=== PATIENT | female | born 1960 | race Caucasian/White ===

== ENCOUNTER 2018-03-26 16:19 | Emergency (ER) | payer OTHER ==
[2018-03-26 16:29] VITALS: BP 147/77
--- NOTE | 2018-03-26 17:06 | ER Document Report ---
ED Medical Screen (RME) - General Chief Complaint: Leg Pain Stated Complaint: RIGHT LEG PAIN, SWELLING Time Seen by Provider: 03/26/18 17:01 Notes: Patient is a 57-year-old female who presents with a few days of worsening right calf pain and swelling. Had a right knee injury 2 years ago, but no recent trauma or surgeries. No history of blood clots. PE: Swelling of right calf. Strong DP and PT pulses. I have greeted and performed a rapid initial assessment of this patient. A comprehensive ED assessment and evaluation of the patient, analysis of test results and completion of the medical decision making process will be conducted by additional ED providers. TRAVEL OUTSIDE OF THE [place] IN LAST 30 DAYS: No - Related Data Allergies/Adverse Reactions: No Known Allergies Allergy (Verified 03/26/18 16:56) Home Medications: gabapentin Past Medical History - Social History Chew tobacco use (# tins/day): No Frequency of alcohol use: Rare Drug Abuse: None Renal/ Medical History: Denies: Hx Peritoneal Dialysis Physical Exam - Vital signs Vitals: Temp Pulse Resp BP Pulse Ox 98.1 F 82 16 147/77 H 95 03/26/18 16:27 03/26/18 16:27 03/26/18 16:27 03/26/18 16:27 03/26/18 16:27 Course - Vital Signs Vital signs: Temp Pulse Resp BP Pulse Ox 98.1 F 82 16 147/77 H 95 03/26/18 16:27 03/26/18 16:27 03/26/18 16:27 03/26/18 16:27 03/26/18 16:27
[2018-03-26 17:41] LABS: ABSOLUTE EOSINOPHILS # (AUTO) 0.4 10^3/uL (0.0-0.6); ABSOLUTE MONOCYTES (AUTO) 0.8 10^3/uL (0.1-1.4); ABSOLUTE NEUT (AUTO) 5.7 10^3/uL (1.7-8.2); BASOPHILS % (AUTO) 0.4 % (0-2); EOSINOPHILS % (AUTO) 3.9 % (0-6); HEMATOCRIT 41.8 % (36.0-47.0); HEMOGLOBIN 14.1 g/dL (12.0-15.5); LYMPHOCYTES % (AUTO) 36.3 % (13-45); MEAN CORPUSCULAR HGB CONC 33.7 g/dL (32.0-36.0); MEAN CORPUSCULAR VOLUME 89 fl (80-97); MONOCYTES % (AUTO) 7.5 % (3-13); PLATELET COUNT 283 10^3/uL (150-450); RED CELL DISTRIBUTION WIDTH 14.7 % (11.5-14.0); SEGMENTED NEUTROPHILS % (AUTO) 51.9 % (42-78); TOTAL CELLS COUNTED % (AUTO) 100 %; WHITE BLOOD COUNT 10.9 10^3/uL (4.0-10.5)
[2018-03-26 18:08] LABS: ALANINE AMINOTRANSFERASE 37 U/L (9-52); ALBUMIN 4.3 g/dL (3.5-5.0); ALKALINE PHOSPHATASE 60 U/L (38-126); ANION GAP 17 (5-19); ASPARTATE AMINO TRANSFERASE 26 U/L (14-36); BILIRUBIN,DIRECT 0.3 mg/dL (0.0-0.4); BILIRUBIN,TOTAL 0.3 mg/dL (0.2-1.3); BLOOD UREA NITROGEN 17 mg/dL (7-20); CALCIUM 9.8 mg/dL (8.4-10.2); CARBON DIOXIDE 24 mmol/L (22-30); CHLORIDE 104 mmol/L (98-107); CREATINE KINASE 37 U/L (30-135); GLUCOSE 139 mg/dL (75-110); POTASSIUM 4.1 mmol/L (3.6-5.0); SODIUM 144.8 mmol/L (137-145); TOTAL PROTEIN 7.8 g/dL (6.3-8.2)
--- NOTE | 2018-03-26 19:17 | RADIOLOGY REPORT (SQ) ---
EXAM DESCRIPTION: TIBIA FIBULA RIGHT COMPLETED DATE/TIME: 03/26/2018 7:09 pm REASON FOR STUDY: pain COMPARISON: None. NUMBER OF VIEWS: Two views. TECHNIQUE: Two radiographic images acquired of the right tibia and fibula to include the knee and an kle in at least one projection. LIMITATIONS: None. FINDINGS: MINERALIZATION: Normal. BONES: No acute fracture or dislocation. No worrisome bone lesions. SOFT TISSUES: No obvious swelling or foreign body. OTHER: No other significant finding. IMPRESSION: NEGATIVE STUDY OF THE RIGHT TIBIA AND FIBULA. NO RADIOGRAPHIC EVIDENCE OF ACUTE INJURY. TECHNICAL DOCUMENTATION: JOB ID: [id number] [employer]- All Rights Reserved Reading location - IP/workstation name: [email or web address]
--- NOTE | 2018-03-26 20:09 | ER Document Report ---
ED General - General Chief Complaint: Leg Pain Stated Complaint: RIGHT LEG PAIN, SWELLING Time Seen by Provider: 03/26/18 17:01 TRAVEL OUTSIDE OF THE [place] IN LAST 30 DAYS: No - HPI Patient complains to provider of: Right leg pain Notes: Patient coming in for right leg pain. Patient states pain behind the calf. Patient does have multiple bruises to the right leg. Patient states she does have a large Labrador retriever has been stepping on her legs and jumping on her. Patient states pain has been sharp and shooting going down the back of her leg patient does have some mild swelling concerning for possible DVT. Patient otherwise denies any recent history of travel denies any trauma denies any history of PE DVT in the past. - Related Data Allergies/Adverse Reactions: No Known Allergies Allergy (Verified 03/26/18 16:56) Home Medications: gabapentin Past Medical History - Social History Smoking Status: Former Smoker Chew tobacco use (# tins/day): No Frequency of alcohol use: Rare Drug Abuse: None Family History: Reviewed & Not Pertinent Patient has suicidal ideation: No Patient has homicidal ideation: No Renal/ Medical History: Denies: Hx Peritoneal Dialysis Review of Systems - Review of Systems Constitutional: No symptoms reported EENT: No symptoms reported Cardiovascular: No symptoms reported Respiratory: No symptoms reported Gastrointestinal: No symptoms reported Genitourinary: No symptoms reported Female Genitourinary: No symptoms reported Musculoskeletal: Other - Leg pain Skin: No symptoms reported Hematologic/Lymphatic: No symptoms reported Neurological/Psychological: No symptoms reported -: Yes All other systems reviewed and negative Physical Exam - Vital signs Vitals: Temp Pulse Resp BP Pulse Ox 98.1 F 82 16 147/77 H 95 03/26/18 16:27 03/26/18 16:27 03/26/18 16:27 03/26/18 16:27 03/26/18 16:27 Interpretation: Normal - General General appearance: Appears well, Alert - HEENT Head: Normocephalic, Atraumatic Eyes: Normal Pupils: PERRL - Respiratory Respiratory status: No respiratory distress Chest status: Nontender Breath sounds: Normal Chest palpation: Normal - Cardiovascular Rhythm: Regular Heart sounds: Normal auscultation Murmur: No - Abdominal Inspection: Normal Distension: No distension Bowel sounds: Normal Tenderness: Nontender Organomegaly: No organomegaly - Back Back: Normal, Nontender - Extremities General upper extremity: Normal inspection, Nontender, Normal color, Normal ROM , Normal temperature General lower extremity: Nontender, Normal color, Normal ROM, Normal temperature , Normal weight bearing. No: Normal inspection - Patient would multiple contusions and bruising on the right leg at the calf. There is some tenderness to palpation of the calf posteriorly proximal and distal. There Is Small Area near the prominent blood vessel not hard but is painful to touch possibly superficial phlebitis there is not warm., Juliano's sign - Neurological Neuro grossly intact: Yes Cognition: Normal Orientation: AAOx4 Kalpana Coma Scale Eye Opening: Spontaneous [place] Coma Scale Verbal: Oriented Kalpana Coma Scale Motor: Obeys Commands Kalpana Coma Scale Total: 15 Speech: Normal Motor strength normal: LUE, RUE, LLE, RLE Sensory: Normal - Psychological Associated symptoms: Normal affect, Normal mood - Skin Skin Temperature: Warm Skin Moisture: Dry Skin Color: Normal Course - Re-evaluation Re-evalutation: 03/26/18 22:48 Doppler was negative for any signs of DVT. Patient's had an x-ray performed showing no signs of acute fracture. More likely painful legs from the multiple contusions that the patient has. Patient was encouraged to take anti- inflammatory medications warm packs ice packs to the areas that hurt patient agrees with this assessment plan was discharged home. - Vital Signs Vital signs: Temp Pulse Resp BP Pulse Ox 98.1 F 82 16 147/77 H 95 03/26/18 16:27 03/26/18 16:27 03/26/18 16:27 03/26/18 16:27 03/26/18 16:27 - Laboratory Result Diagrams: 03/26/18 17:22 03/26/18 17:22 Laboratory results interpreted by me: 03/26/18 03/26/18 17:22 17:22 WBC 10.9 H RDW 14.7 H Glucose 139 H Discharge - Discharge Clinical Impression: Right leg swelling, Right leg pain, Multiple contusions Condition: Good Disposition: HOME, SELF-CARE Instructions: Anti-Inflammatory Medication ([facility]), Leg Pain Nonspecific ([facility]), Superficial Phlebitis ([facility]) Additional Instructions: Your evaluation does not show any signs of significant pathology. I highly recommend she follow-up with your primary care physician. There is no signs of blood clots or fracture. You may have superficial phlebitis on the upper inner calf. Treatment for this is anti-inflammatories warm packs. Also recommend taking Tylenol along with your anti-inflammatory medication. Forms: Return to Work
--- NOTE | 2018-03-27 12:11 | XCELERA REPORT ---
[address] [address] Lower Extremity Venous Evaluation Name: JOANIE FERNÁNDEZ Age: 57 yrs Gender: Female : 1960 Patient Status: Emergency Patient Location: ER Study Date: 03/26/2018 06:01 PM Procedure: Color flow and duplex imaging of the veins of the right lower extremity as well as the left Common Femoral vein. Reason For Study: right leg swelling and pain Ordering Physician: TARYN PADILLA Performed By: Joselo Loyd Right Sided Venous Evaluation Normal vessel filling wall to wall, compression and augmentation as well as Colour flow down to the infrageniculate veins. Left Sided Venous Evaluation The left common femoral vein is fully compressible. Spontaneous and phasic flow is present in the left common femoral vein. Interpretation Summary No duplex evidence of DVT or obstruction in the right lower extremity nor in the left Common Femoral vein. : TARYN PADILLA > Best Reeves
== END 2018-03-26 20:14 | disposition home or self-care (01) ==
LOC: ER 16:19
DX: S80.11XA Contusion of right lower leg, initial encounter (principal); M79.604 Pain in right leg; M79.89 Other specified soft tissue disorders; Y93.K9 Activity, other involving animal care; Y92.009 Unspecified place in unspecified non-institutional (private) residence as the place of occurrence of the external cause
CPT/HCPCS: 36415; 80053; 82550; 83880; 85025; 93971; 99284

== ENCOUNTER → 2018-08-31 | Outpatient (CLI) | payer OTHER ==
--- NOTE | 2018-08-31 18:44 | RADIOLOGY REPORT (SQ) ---
EXAM DESCRIPTION: CHEST 2 VIEWS COMPLETED DATE/TIME: 08/31/2018 6:17 pm REASON FOR STUDY: R07.89 OTHER CHEST PAIN COMPARISON: None. EXAM PARAMETERS: NUMBER OF VIEWS: two views TECHNIQUE: Digital Frontal and Lateral radiographic views of the chest acquired. RADIATION DOSE: NA LIMITATIONS: none FINDINGS: LUNGS AND PLEURA: No opacities, masses or pneumothorax. No pleural effusion. MEDIASTINUM AND HILAR STRUCTURES: No masses or contour abnormalities. HEART AND VASCULAR STRUCTURES: Heart normal size. No evidence for failure. BONES: No acute findings. HARDWARE: None in the chest. OTHER: No other significant finding. IMPRESSION: NO ACUTE RADIOGRAPHIC FINDING IN THE CHEST. TECHNICAL DOCUMENTATION: JOB ID: [id number] [employer]- All Rights Reserved Reading location - IP/workstation name: [email or web address]
--- NOTE | 2018-09-01 07:59 | EKG REPORT ---
SEVERITY:- NORMAL ECG - SINUS RHYTHM : Confirmed by: Temo Ray MD 01-Sep-2018 07:58:25
== END ==
LOC: RAD 17:55
PROVIDERS: ATTEND Nurse Practitioner Family
DX: R07.89 Other chest pain (principal)
CPT/HCPCS: 71046; 93005; 93010

== ENCOUNTER 2018-09-02 00:38 | Emergency (ER) | payer OTHER ==
--- NOTE | 2018-09-02 01:03 | ER Document Report ---
ED General - General Chief Complaint: Blood Pressure Problem Stated Complaint: BLOOD PRESSURE ISSUE Time Seen by Provider: 09/02/18 00:58 Mode of Arrival: Wheelchair Information source: Patient TRAVEL OUTSIDE OF THE [place] IN LAST 30 DAYS: No - HPI Patient complains to provider of: High blood pressure, chest pain, feeling shaky Onset: Last week Onset/Duration: Waxing and waning Quality of pain: Achy Severity: Moderate Pain Level: 3 Associated symptoms: Chest pain, Shortness of breath Exacerbated by: Denies Relieved by: Denies Similar symptoms previously: Yes Recently seen / treated by doctor: Yes Notes: Patient is a 58-year-old female presenting to the emergency room complaining of elevated blood pressure readings with chest pain, and feeling shaky, on initial evaluation RN reports that patient had some slurred speech or confusion, and activated a stroke alert, however upon my initial evaluation patient has no evidence of this, and no evidence of any weakness in any extremities, she is here complaining of chest pain that has been going on for the past several days , stating that she saw her primary care provider and had an outpatient chest x- ray and EKG performed but she is unaware of the results, she denies a history of similar symptoms previously, no history of coronary artery disease and no history of any cardiac workup previously, symptoms have been going on since Friday of last week - Related Data Allergies/Adverse Reactions: No Known Allergies Allergy (Verified 03/26/18 16:56) Past Medical History - General Information source: Patient - Social History Smoking Status: Never Smoker Family History: Reviewed & Not Pertinent Renal/ Medical History: Denies: Hx Peritoneal Dialysis Review of Systems - Review of Systems Constitutional: No symptoms reported EENT: No symptoms reported Cardiovascular: See HPI Respiratory: No symptoms reported Gastrointestinal: No symptoms reported Genitourinary: No symptoms reported Female Genitourinary: No symptoms reported Musculoskeletal: No symptoms reported Skin: No symptoms reported Hematologic/Lymphatic: No symptoms reported Neurological/Psychological: No symptoms reported -: Yes All other systems reviewed and negative Physical Exam - Vital signs Vitals: Resp BP 21 H 161/119 H 09/02/18 00:57 09/02/18 00:57 Interpretation: Normal - General General appearance: Appears well, Alert - HEENT Head: Normocephalic, Atraumatic Eyes: Normal Pupils: PERRL - Respiratory Respiratory status: No respiratory distress Chest status: Nontender Breath sounds: Normal Chest palpation: Normal - Cardiovascular Rhythm: Regular Heart sounds: Normal auscultation Murmur: No - Abdominal Inspection: Normal Distension: No distension Bowel sounds: Normal Tenderness: Nontender Organomegaly: No organomegaly - Back Back: Normal, Nontender - Extremities General upper extremity: Normal inspection, Nontender, Normal color, Normal ROM , Normal temperature General lower extremity: Normal inspection, Nontender, Normal color, Normal ROM , Normal temperature, Normal weight bearing. No: Juliano's sign - Neurological Neuro grossly intact: Yes Cognition: Normal Orientation: AAOx4 Kalpana Coma Scale Eye Opening: Spontaneous [place] Coma Scale Verbal: Oriented [place] Coma Scale Motor: Obeys Commands Kalpana Coma Scale Total: 15 Speech: Normal Motor strength normal: LUE, RUE, LLE, RLE Sensory: Normal - Psychological Associated symptoms: Anxious - Skin Skin Temperature: Warm Skin Moisture: Dry Skin Color: Normal Course - Re-evaluation Re-evalutation: 09/02/18 05:49 Lab and imaging findings discussed with patient at bedside which are unremarkable, symptoms have been going on for 3-4 days now, cardiac enzymes are negative, CTA shows no evidence of pulmonary embolism, besides sinus tachycardia on initial EKG there are no other signs of any abnormalities, therefore patient will be discharged with instructions for follow-up and advised to return if anything worsens or any additional concerns, patient and at bedside acknowledge understanding and agreement with this plan - Vital Signs Vital signs: Temp Pulse Resp BP Pulse Ox 16 129/89 H 94 09/02/18 05:13 09/02/18 05:31 09/02/18 05:01 - Laboratory Result Diagrams: 09/02/18 01:21 09/02/18 01:21 Laboratory results interpreted by me: 09/02/18 01:21 Glucose 116 H - Diagnostic Test Radiology reviewed: Image reviewed, Reports reviewed - EKG Interpretation by Me EKG shows normal: Sinus rhythm Rate: Tachycardia Discharge - Discharge Clinical Impression: Hypertension Qualifiers: Hypertension type: unspecified Qualified Code(s): I10 - Essential (primary) hypertension Chest pain Qualifiers: Chest pain type: unspecified Qualified Code(s): R07.9 - Chest pain, unspecified Condition: Stable Disposition: HOME, SELF-CARE Instructions: Chest Pain of Unclear Cause ([facility]), High Blood Pressure ([facility]) Additional Instructions: Follow up with your primary care provider and a railroad brakeman in one to 2 days. Return to the emergency room immediately if symptoms worsen or any additional concerns. Referrals: BONG VICK MD [ACTIVE STAFF] - Follow up as needed
[2018-09-02] MEDS ORDERED: ASPIRIN 81 MG TABLET, CHEWABLE PO ONE (01:17)
--- NOTE | 2018-09-02 01:17 | RADIOLOGY REPORT (SQ) ---
EXAM DESCRIPTION: CT HEAD WITHOUT IV CONTRAST COMPLETED DATE/TME: 09/02/2018 00:00 CLINICAL HISTORY: STROKE PROTOCOL COMPARISON: None available TECHNIQUE: Axial CT of the head obtained from the skull apex to the skull base without contrast. FINDINGS: No acute intracranial hemorrhage identified. No mass, mass effect, shift of the midline, abnormal extra-axial fluid collection or CT evidence of acute ischemic change identified. The ventricular system is unremarkable. No acute abnormalities of the supratentorial white matter, basal ganglia, cerebellum, or brainstem. The visualized paranasal sinuses and the mastoids are clear. No skull fracture identified. Visualized orbits and globes are unremarkable. DLP:990.56 mGy-cm IMPRESSION: 1. No acute intracranial abnormality identified. This exam was performed according to our departmental dose-optimization program, which includes automated exposure control, adjustment of the mA and/or kV according to patient size and/or use of iterative reconstruction technique.
[2018-09-02 01:42] LABS: ABSOLUTE EOSINOPHILS # (AUTO) 0.3 10^3/uL (0.0-0.6); ABSOLUTE LYMPHOCYTES (AUTO) 3.8 10^3/uL (0.5-4.7); ABSOLUTE MONOCYTES (AUTO) 0.8 10^3/uL (0.1-1.4); ABSOLUTE NEUT (AUTO) 5.5 10^3/uL (1.7-8.2); BASOPHILS % (AUTO) 0.4 % (0-2); HEMATOCRIT 39.6 % (36.0-47.0); HEMOGLOBIN 13.7 g/dL (12.0-15.5); LYMPHOCYTES % (AUTO) 36.6 % (13-45); MEAN CORPUSCULAR HEMOGLOBIN 30.7 pg (27.0-33.4); MEAN CORPUSCULAR HGB CONC 34.6 g/dL (32.0-36.0); MEAN CORPUSCULAR VOLUME 89 fl (80-97); MONOCYTES % (AUTO) 7.3 % (3-13); PLATELET COUNT 276 10^3/uL (150-450); RED BLOOD COUNT 4.47 10^6/uL (3.72-5.28); RED CELL DISTRIBUTION WIDTH 13.3 % (11.5-14.0); SEGMENTED NEUTROPHILS % (AUTO) 52.7 % (42-78); TOTAL CELLS COUNTED % (AUTO) 100 %; WHITE BLOOD COUNT 10.4 10^3/uL (4.0-10.5)
[2018-09-02 01:47] LABS: INTERNATIONAL RATION (INR) 0.93
[2018-09-02 01:48] LABS: PARTIAL THROMBOPLASTIN TIME 31.3 SEC (23.5-35.8)
[2018-09-02 01:53] LABS: ALANINE AMINOTRANSFERASE 31 U/L (9-52); ALBUMIN 4.3 g/dL (3.5-5.0); ALKALINE PHOSPHATASE 63 U/L (38-126); ANION GAP 13 (5-19); ASPARTATE AMINO TRANSFERASE 27 U/L (14-36); BILIRUBIN,DIRECT 0.3 mg/dL (0.0-0.4); BILIRUBIN,TOTAL 0.7 mg/dL (0.2-1.3); BLOOD UREA NITROGEN 13 mg/dL (7-20); CALCIUM 9.8 mg/dL (8.4-10.2); CARBON DIOXIDE 25 mmol/L (22-30); CHLORIDE 102 mmol/L (98-107); GLUCOSE 116 mg/dL (75-110); LIPASE 36.4 U/L (23-300); POTASSIUM 4.1 mmol/L (3.6-5.0); TOTAL PROTEIN 7.9 g/dL (6.3-8.2)
[2018-09-02 03:48] LABS: NT PRO BNP 33 pg/mL (5-900)
[2018-09-02 03:53] LABS: TROPONIN I < 0.012 ng/mL
--- NOTE | 2018-09-02 04:28 | RADIOLOGY REPORT (SQ) ---
EXAM DESCRIPTION: CT CHEST ANGIOGRAPHY WITH IV CONTRAST COMPLETED DATE/TME: 09/02/2018 02:20 CLINICAL HISTORY: SOB COMPARISON: None Available. TECHNIQUE: CTA of the chest obtained following the uncomplicated intravenous administration of iodinated contrast. 3-D/MIP reformatted images of the chest available for evaluation. DLP: 1459.2 mGycm FINDINGS: Chest: Pulmonary arteries: Contrast bolus is adequate.No filling defects identified in the pulmonary arteries to suggest pulmonary embolus. Thyroid:No abnormalities of the visualized thyroid. Great Vessels:Great vessels have normal anatomic configuration. Thoracic Aorta:No abnormalities of the thoracic aorta identified. Heart:No cardiomegaly, significant pericardial effusion, or coronary artery atherosclerosis Lymph Nodes:No enlarged mediastinal lymph nodes identified. Esophagus:No abnormalities of the esophagus identified. Other:No additional findings. Lungs:No confluent alveolar or diffuse interstitial airspace opacities identified. Mild dependent atelectasis. Pleura:No pleural effusion or pneumothorax. Trachea/Airways:No abnormalities of the visualized trachea or airways. Bones:No destructive osseous lesions. Endplate spondylosis Upper Abdomen:Limited images of the upper abdomen demonstrate no definite abnormalities of visualized portions of the liver, gallbladder, pancreas, spleen, adrenal glands, or kidneys. IMPRESSION: 1. No pulmonary embolus identified. This exam was performed according to our departmental dose-optimization program, which includes automated exposure control, adjustment of the mA and/or kV according to patient size and/or use of iterative reconstruction technique.
[2018-09-02 04:44] LABS: FREE T3 3.98 pg/mL (2.77-5.27); FREE T4 (FREE THYROXINE) 1.51 ng/dL (0.78-2.19)
[2018-09-02 04:58] LABS: THYROID STIMULATING HORMONE 0.75 uIU/mL (0.47-4.68)
[2018-09-02 05:35] VITALS: BP 129/89
--- NOTE | 2018-09-02 08:06 | EKG REPORT ---
SEVERITY:- OTHERWISE NORMAL ECG - SINUS TACHYCARDIA : Confirmed by: Temo Ray MD 02-Sep-2018 08:04:53
== END 2018-09-02 05:35 | disposition home or self-care (01) ==
LOC: ER 00:38
DX: R07.9 Chest pain, unspecified (principal); I10 Essential (primary) hypertension; R47.81 Slurred speech; R06.02 Shortness of breath
CPT/HCPCS: 36415; 70450; 71275; 80053; 82962; 83690; 83735; 83880; 84439; 84443; 84481; 84484; 85025; 85610; 85730; 93005; 93010; 99284

== ENCOUNTER 2020-05-09 10:31 | Emergency (ER) | payer OTHER ==
[2020-05-09 10:38] VITALS: BP 185/89
--- NOTE | 2020-05-09 10:53 | ER Document Report ---
ED Medical Screen (RME) - General Chief Complaint: Leg Pain Stated Complaint: RIGHT LEG PAIN Time Seen by Provider: 05/09/20 10:50 Mode of Arrival: Ambulatory Information source: Patient, Parent Notes: This 59-year-old female presents to the emergency room today stating that she has warmth and tenderness to the right lower extremity. She had been seen multiple clinic she does know she has some varicose veins however she is fearful that she may have a blood clot. TRAVEL OUTSIDE OF THE [place] IN LAST 30 DAYS: No - Related Data Allergies/Adverse Reactions: No Known Allergies Allergy (Verified 03/26/18 16:56) Past Medical History - Social History Frequency of alcohol use: None Drug Abuse: None Renal/ Medical History: Denies: Hx Peritoneal Dialysis Physical Exam - Vital signs Vitals: Temp Pulse BP Pulse Ox 98.1 F 83 185/89 H 98 05/09/20 10:35 05/09/20 10:35 05/09/20 10:35 05/09/20 10:35 Course - Vital Signs Vital signs: Temp Pulse Resp BP Pulse Ox 98.1 F 83 185/89 H 98 05/09/20 10:35 05/09/20 10:35 05/09/20 10:35 05/09/20 10:35
[2020-05-09 11:27] LABS: INTERNATIONAL RATION (INR) 0.98
[2020-05-09 11:55] LABS: ABSOLUTE BASOPHILS # (AUTO) 0.1 10^3/uL (0.0-0.2); ABSOLUTE EOSINOPHILS # (AUTO) 0.3 10^3/uL (0.0-0.6); ABSOLUTE LYMPHOCYTES (AUTO) 3.5 10^3/uL (0.5-4.7); ABSOLUTE MONOCYTES (AUTO) 0.6 10^3/uL (0.1-1.4); ABSOLUTE NEUT (AUTO) 6.2 10^3/uL (1.7-8.2); BASOPHILS % (AUTO) 0.6 % (0-2); EOSINOPHILS % (AUTO) 3.3 % (0-6); HEMATOCRIT 41.7 % (36.0-47.0); HEMOGLOBIN 14.3 g/dL (12.0-15.5); LYMPHOCYTES % (AUTO) 32.5 % (13-45); MEAN CORPUSCULAR HEMOGLOBIN 30.7 pg (27.0-33.4); MEAN CORPUSCULAR HGB CONC 34.2 g/dL (32.0-36.0); MEAN CORPUSCULAR VOLUME 90 fl (80-97); MONOCYTES % (AUTO) 5.9 % (3-13); PLATELET COUNT 285 10^3/uL (150-450); RED BLOOD COUNT 4.64 10^6/uL (3.72-5.28); RED CELL DISTRIBUTION WIDTH 13.9 % (11.5-14.0); SEGMENTED NEUTROPHILS % (AUTO) 57.7 % (42-78); TOTAL CELLS COUNTED % (AUTO) 100 %; WHITE BLOOD COUNT 10.7 10^3/uL (4.0-10.5)
--- NOTE | 2020-05-09 12:53 | RADIOLOGY REPORT (SQ) ---
EXAM DESCRIPTION: VENOUS UNILATERAL LOWER IMAGES COMPLETED DATE/TIME: 05/09/2020 12:30 pm REASON FOR STUDY: leg pain RLE COMPARISON: None. TECHNIQUE: Dynamic and static orta scale and color images acquired of the right leg venous system. S elected spectral images acquired with additional compression and augmentation maneuvers. The contrala teral common femoral vein and saphenofemoral junction were also imaged. Images stored on PACS. LIMITATIONS: None. FINDINGS: COMMON FEMORAL: Normal phasicity, compression and augmentation. No visualized echogenic ma terial on orta scale. No defects on color images. FEMORAL: Normal compression and augmentation. No visualized echogenic material on orta scale. No defe cts on color images. POPLITEAL: Normal compression, augmentation. No visualized echogenic material on orta scale. No defec ts on color images. CALF VESSELS: Normal compression, augmentation. No visualized echogenic material on orta scale. No de fects on color images. GSV and SSV: Normal compression, augmentation. No visualized echogenic material on orta scale. No def ects on color images. ANY DEEP VENOUS INSUFFICIENCY: No. ANY EVIDENCE OF POPLITEAL CYST: No. OTHER: No other finding. CONTRALATERAL COMMON FEMORAL VEIN: Normal phasicity, compression and augmentation. No visualized echogenic material on orta scale. No de fects on color images. TECHNICAL DOCUMENTATION: JOB ID: [id number] 2010 [employer] [facility]- All Rights Reserved Reading location - IP/workstation name: [email or web address]
--- NOTE | 2020-05-09 13:28 | ER Document Report ---
Entered by YESSI STODDARD SCRIBE 05/09/20 1327 Acting as scribe for:TAYLOR DE LA CRUZ MD ED Extremity Problem, Lower - General Chief Complaint: Leg Pain Stated Complaint: RIGHT LEG PAIN Time Seen by Provider: 05/09/20 10:50 Primary Care Provider: ELIZABETH CAMPOS PA-C [Primary Care Provider] - Follow up as needed Mode of Arrival: Ambulatory Information source: Patient Notes: This 59-year-old female patient presents to the emergency department today with complaints of right lower extremity swelling and pain for the last few days. Patient states the pain radiates from her right mid leg down to her right calf. Patient describes the pain as a numb tingling sensation with occasional sharp pain. Patient states it feels like "her veins are heavy". TRAVEL OUTSIDE OF THE [place] IN LAST 30 DAYS: No - Related Data Allergies/Adverse Reactions: No Known Allergies Allergy (Verified 03/26/18 16:56) Past Medical History - General Information source: Patient, Parent - Social History Smoking Status: Unknown if Ever Smoked Cigarette use (# per day): No Frequency of alcohol use: None Drug Abuse: None Lives with: Family Family History: Reviewed & Not Pertinent - Past Medical History Cardiac Medical History: Reports: Hx Hypertension Endocrine Medical History: Reports: Hx Hypothyroidism Surgical Hx: Negative Review of Systems - Review of Systems Constitutional: No symptoms reported EENT: No symptoms reported Cardiovascular: No symptoms reported Respiratory: No symptoms reported Gastrointestinal: No symptoms reported Genitourinary: No symptoms reported Female Genitourinary: No symptoms reported Musculoskeletal: See HPI, Leg swelling, Ankle swelling Skin: No symptoms reported Hematologic/Lymphatic: No symptoms reported Neurological/Psychological: No symptoms reported -: Yes All other systems reviewed and negative Physical Exam - Vital signs Vitals: Temp Pulse BP Pulse Ox 98.1 F 83 185/89 H 98 05/09/20 10:35 05/09/20 10:35 05/09/20 10:35 05/09/20 10:35 - Notes Notes: Physical Exam: General: Alert, appears well. HEENT: Normocephalic. Atraumatic. PERRL. Extraocular movements intact. Oropharynx clear. Neck: Supple. Non-tender. Respiratory: No respiratory distress. Clear and equal breath sounds bilaterally. Cardiovascular: Regular rate and rhythm. Abdominal: Normal Inspection. Non-tender. No distension. Normal Bowel Sounds. Back: No gross abnormalities. Extremities: Moves all four extremities. Upper extremities: Normal inspection. Normal ROM. Lower extremities:1+ pitting edema bilaterally. Varicose veins in right lower extremity. Normal ROM. Neurological: Normal cognition. AAOx4. Normal speech. Psychological: Normal affect. Normal Mood. Skin: Warm. Dry. Normal color. Course - Re-evaluation Re-evalutation: 05/09/20 13:32 Venous Doppler study is negative for DVT. Long discussion with the patient about her varicosities and possible treatment options. She is recommended to follow-up with her primary care provider and get referral to vascular surgeon or to Dr. Pickett the local plastic surgeon sclerosis the superficial varicosities. 05/09/20 13:36 The nurse came and told me the patient had walked out while I was doing discharges for the room she was then and the adjacent room. I had fully covered the discharge plan with her so that is probably why she did not wait for the written paperwork. - Vital Signs Vital signs: Temp Pulse Resp BP Pulse Ox 98.1 F 83 185/89 H 98 05/09/20 10:35 05/09/20 10:35 05/09/20 10:35 05/09/20 10:35 - Laboratory Result Diagrams: 05/09/20 11:00 Laboratory results interpreted by me: 05/09/20 11:00 WBC 10.7 H - Diagnostic Test Radiology reviewed: Reports reviewed - Venous Dopplers negative for DVT. Discharge - Discharge Clinical Impression: Lower extremity pain, medial Qualifiers: Laterality: right Qualified Code(s): M79.604 - Pain in right leg Varicose veins of right lower extremity Qualifiers: Varicose vein complication: unspecified Qualified Code(s): I83.91 - Asymptomatic varicose veins of right lower extremity Condition: Stable Disposition: HOME, SELF-CARE Additional Instructions: Leg Pain, Nonspecific We did not find an obvious cause for your leg pain. There's no sign of blood clot, infection, or other serious disease. Possible causes of vague leg pain include muscle or joint inflammation, disc disease in the lower back, pressure on the nerves in the back, or reduced blood flow through the arteries of the leg. Rest the leg. Pain can be eased with an antiinflammatory pain medicine such as ibuprofen. If the pain involves a small area, a heating pad might help. Call the doctor or return if the leg becomes swollen, weak, discolored, or increasingly painful, or if you develop any other significant change in your health. Elevate your leg and limit walking as much as possible. Take ibuprofen or Aleve for the discomfort. Follow-up with your primary care provider for recheck of your leg pain and pos sible referral for evaluation of your varicose veins. RETURN TO THE EMERGENCY ROOM IF ANY NEW OR WORSENING SYMPTOMS. Referrals: ELIZABETH CAMPOS PA-C [Primary Care Provider] - Follow up as needed I personally performed the services described in the documentation, reviewed and edited the documentation which was dictated to the scribe in my presence, and it accurately records my words and actions.
== END 2020-05-09 13:45 | disposition home or self-care (01) ==
LOC: ER 10:31
DX: I83.91 Asymptomatic varicose veins of right lower extremity (principal); M79.604 Pain in right leg; M79.89 Other specified soft tissue disorders; R20.0 Anesthesia of skin; I10 Essential (primary) hypertension
CPT/HCPCS: 36415; 85025; 85610; 93971; 99284